=== PATIENT | female | born 1995 | race Caucasian/White ===

== ENCOUNTER 2022-02-28 12:40 | Observation (INO) | END 2022-02-28 14:00 | disposition home or self-care (01) | LOC: 1NENULAB | PROVIDERS: ADMIT Advanced Practice Midwife; ATTEND Advanced Practice Midwife ==

== ENCOUNTER 2022-03-04 03:52 | Inpatient (IN) ==
[2022-03-04] MEDS ORDERED: Famotidine 20 MG/2 ML VIAL IVP PRN (04:22)
[2022-03-04] MEDS ORDERED: Azithromycin 500 MG in 0.9 % Sodium Chloride 250 ML IVPB PRN (04:22)
[2022-03-04] MEDS ORDERED: Naloxone 0.4 MG/ML INJ IVP PRN ×2 (04:22→11:42)
[2022-03-04] MEDS ORDERED: Metoclopramide 10 MG/2 ML VIAL IVP PRN (04:22)
[2022-03-04] MEDS ORDERED: *HR* FentaNYL (PF) 100 MCG/2 ML VIAL IVP PRN (04:22)
[2022-03-04] MEDS ORDERED: miSOPROStoL 25 MCG TABLET VG PRN (04:30)
[2022-03-04] MEDS ORDERED: miSOPROStoL 25 MCG TABLET PO PRN (04:30)
[2022-03-04 04:54] LABS: Amphetamine Screen,Urine Negative ng/mL (Cutoff=1000); Barbiturate Screen,Urine Negative ng/mL (Cutoff=200); Benzodiazepines Screen,Urine Negative ng/mL (Cutoff=200); Cannabinoid Screen,Urine Negative ng/mL (Cutoff = 50); Cocaine Screen,Urine Negative ng/mL (Cutoff= 300); Opiate Screen,Urine Negative ng/mL (Cutoff=300); Phencyclidine Screen,Urine Negative ng/mL (Cutoff=25)
[2022-03-04 05:39] LABS: Basophils # 0.1 K/mcL (0.0-0.2); Basophils % 0.6 %; Eosinophils # 0.3 K/mcL (0.0-0.6); Eosinophils % 2.2 %; Hematocrit 37.4 % (35.3-44.9); Hemoglobin 12.3 g/dL (11.5-15.4); Immature Granulocytes % 0.4 % (0-4); Lymphocytes # 2.6 K/mcL (0.6-4.6); Mean Corpuscular HGB Conc 32.9 g/dL (31.6-35.5); Mean Corpuscular Hemoglobin 28.2 pg (28.0-33.3); Mean Corpuscular Volume 85.8 fL (83.0-100.0); Mean Platelet Volume 11.4 fL (9.4-12.4); Monocytes # 0.8 K/mcL (0.0-1.3); Monocytes % 5.7 %; Platelet Count 322 K/mcL (140-400); Red Blood Count 4.36 M/mcL (3.82-4.97); Red Cell Distribution Width 13.9 % (11.5-14.5); Segmented Neutrophils % 72.1 %; White Blood Count 13.9 K/mcL (4.3-11.1)
[2022-03-04] MEDS: Ringers Solution, Lactated 1,000 ML IVC SCH ×2 (08:59→22:07)
[2022-03-04] MEDS: Oxytocin 30 UNIT/503 ML BAG IVC SCH (09:00)
[2022-03-04] MEDS: *HR* Nalbuphine 10 MG/ML AMPUL IV PRN ×2 (11:41→15:58)
[2022-03-04] MEDS ORDERED: *HR* FentaNYL (PF) 100 MCG/2 ML VIAL EP ONE (11:42)
[2022-03-04] MEDS ORDERED: Ropivacaine/PF 0.2% 20 ML VIAL EP ONE (11:42)
[2022-03-04] MEDS ORDERED: Bupivacaine-MPF 0.25% 10 ML VIAL EP ONE (11:42)
[2022-03-04] MEDS ORDERED: Ondansetron 4 MG/2 ML VIAL IVP PRN (11:42)
[2022-03-04] MEDS ORDERED: EPHEDrine sulfate 50 MG/10 ML VIAL IVP PRN (11:42)
[2022-03-04] MEDS ORDERED: Epidural Premix (fent/bupiv) 110 ML EP SCH (11:45)
[2022-03-04] MEDS ORDERED: Ropivacaine/PF 0.2% 20 ML VIAL ONE (12:01)
[2022-03-04] MEDS: Ondansetron 4 MG/2 ML VIAL IVP PRN (15:52)
[2022-03-04 16:15] LABS: Protein/Creatinine Ratio,Urine 0.11 mg/mg (0.00-0.20)
[2022-03-04 16:23] LABS: Alanine Aminotransferase 10 Units/L (7-52); Aspartate Amino Transferase 12 Units/L (13-39); BUN/Creatinine Ratio 13 (6-26); Blood Urea Nitrogen 8 mg/dL (6-20); Lactate Dehydrogenase 156 Units/L (140-271); Uric Acid 4.3 mg/dL (2.3-7.6)
[2022-03-05] MEDS: Ondansetron 4 MG/2 ML VIAL IVP PRN (01:01)
[2022-03-05] MEDS: Oxytocin 30 UNIT/503 ML BAG IVC SCH (03:59)
[2022-03-05] MEDS ORDERED: Lanolin 7 G OINT...G. TP PRN (04:52)
[2022-03-05] MEDS ORDERED: Oxytocin 30 UNIT/503 ML BAG IVC SCH (04:52)
[2022-03-05] MEDS ORDERED: Ondansetron ODT 4 MG TAB.RAPDIS SL PRN (04:52)
[2022-03-05] MEDS ORDERED: Benzocaine/Menthol 56 GM AEROSOL SPRAY TP PRN (04:52)
[2022-03-05] MEDS ORDERED: OXYTOCIN/RINGERS LACTATE 10 UNIT/166.6 ML BAG IVC ONE (04:52)
[2022-03-05] MEDS ORDERED: Measles/Mumps/Rubella Vacc 0.5 ML VIAL SQ PRN (04:52)
[2022-03-05] MEDS: Ibuprofen 600 MG TABLET PO SCH ×4 (05:18→21:02)
[2022-03-05] MEDS: Acetaminophen 325 MG TABLET PO SCH ×4 (05:18→20:48)
[2022-03-05] MEDS: Prenatal Vit/FA 1 EACH TABLET PO SCH (08:25)
[2022-03-06] MEDS: Acetaminophen 325 MG TABLET PO SCH (03:46)
[2022-03-06] MEDS: Ibuprofen 600 MG TABLET PO SCH ×2 (03:46→11:21)
[2022-03-06 07:22] VITALS: O2SAT 98
[2022-03-06] MEDS: Prenatal Vit/FA 1 EACH TABLET PO SCH (07:56)
[2022-03-06 15:09] VITALS: BP 121/73; PULSE 83; TEMP 98.1
== END 2022-03-06 15:10 | disposition home or self-care (01) | DRG 560 ==
LOC: 1NENULAB 03:52 → 1NENUOBS 03-05 04:52
PROVIDERS: ADMIT Obstetrics & Gynecology; ATTEND Obstetrics & Gynecology